=== PATIENT | female | born 1975 | race Caucasian/White ===

== ENCOUNTER → 2021-11-25 | Outpatient (CLI) | payer OTHER ==
[~2021-11-25] MED LIST: CARAFATE1 GM PO; PEPCID20 MG PO; ZOFRAN ODT 4 MG4 MG SL
== END ==
LOC: CT 09:42
DX: R39.89 Other symptoms and signs involving the genitourinary system (principal); R10.9 Unspecified abdominal pain; R31.9 Hematuria, unspecified; M54.50 Low back pain, unspecified; N28.9 Disorder of kidney and ureter, unspecified
CPT/HCPCS: Q9967

== ENCOUNTER → 2022-05-16 | Outpatient (CLI) | payer OTHER | LOC: CT 05-09 09:30 | DX: R31.9 Hematuria, unspecified (principal); N28.89 Other specified disorders of kidney and ureter; N28.9 Disorder of kidney and ureter, unspecified | CPT/HCPCS: 74170; Q9967 ==